=== PATIENT | male | born 1965 | race Caucasian/White ===

== ENCOUNTER 2019-03-02 02:04 | Emergency (ER) | payer OTHER, SELFPAY ==
[2019-03-02] MEDS ORDERED: NA CHLORIDE 0.9% 1,000 ML ONE (02:37)
[2019-03-02] MEDS ORDERED: OXYMETAZOLINE HCL 0.05% 15ML NAS ONE (02:37)
[2019-03-02 02:50] LABS: Absolute Lymphocytes (CBC) 2.4 K/uL (0.7-4.9); Absolute Monocytes 0.5 K/uL (0.1-1.3); Absolute Neutrophil 3.3 K/uL (1.8-8.0); Basophils % 0.2 % (0-1.3); Eosinophils % 3.5 % (0-4.4); Hematocrit 42.4 % (39.6-49.0); Lymphocytes % 37.2 % (15.3-44.8); MPV 8.1 fL (7.6-11.3); Monocytes % 7.7 % (3.3-12.3); RBC Red Blood Cell Count 5.28 M/uL (4.33-5.43)
[2019-03-02] MEDS ORDERED: CLONIDINE 0.2 MG/PATCH TD ONE (02:56)
[2019-03-02 03:05] LABS: Protime INR 1.01
[2019-03-02 03:13] LABS: Creatine Phosphokinase 41 U/L (39-308); Troponin (Emerg Dept Use Only) < 0.02 ng/mL (0.0-0.045)
[2019-03-02 03:44] LABS: Albumin 3.1 g/dL (3.4-5.0); Bilirubin Direct 0.2 mg/dL (0-0.2); Bilirubin Total 0.4 mg/dL (0.2-1.0); Potassium 3.6 mmol/L (3.5-5.1); Thyroid Stimulating Hormone 0.925 uIU/mL (0.360-3.740)
--- NOTE | 2019-03-02 03:44 | ER ---
Nurse's Notes [facility] Name: Celso Al Age: 53 yrs Sex: Male : 1965 Arrival Date: 03/02/2019 Time: 02:04 Bed 17 Private MD: Diagnosis: Epistaxis;Essential (primary) hypertension;Dysphagia;Chest pain, unspecified Presentation: 03/02 02:00 Presenting complaint: EMS states: Pt has had chest pain that started earlier today, and jb4 a nose bleed that started approximately 15 minutes prior to arrival to the ED EKG reading sinus rhythm at a rate of 90, 100% on room air, 170/100. Reports dropping 50 pounds within the past couple weeks due to not being able to eat because of the hiatal hernia. 02:00 Transition of care: patient was not received from another setting of care. Onset of jb4 symptoms was March 02, 2019. Risk Assessment: Do you want to hurt yourself or someone else? Patient reports no desire to harm self or others. Initial Sepsis Screen: Does the patient meet any 2 criteria? HR > 90 bpm. Yes Does the patient have a suspected source of infection? No. Patient's initial sepsis screen is negative. Care prior to arrival: IV initiated. 20 GA, in the left antecubital area. 02:00 Method Of Arrival: EMS: [facility] jb4 02:00 Acuity: CHONG 3 jb4 Triage Assessment: 02:20 General: Appears in no apparent distress. uncomfortable, Behavior is calm, cooperative, cc3 appropriate for age. Pain: Complains of pain in epigastric area. EENT: Nares with bleeding noted on left. Neuro: Level of Consciousness is awake, alert, obeys commands, Oriented to person, place, time, situation, Appropriate for age. Cardiovascular: Patient's skin is warm and dry. Respiratory: Airway is patent Respiratory effort is even, unlabored, Respiratory pattern is regular, symmetrical. GI: Abdomen is flat. : No signs and/or symptoms were reported regarding the genitourinary system. Derm: No signs and/or symptoms reported regarding the dermatologic system. Musculoskeletal: Circulation, motion, and sensation intact. Range of motion: intact in all extremities. Historical: - Allergies: 02:00 No Known Allergies; jb4 - Home Meds: 02:00 None [Active]; jb4 - PMHx: 02:00 Hypertension; hiatal hernia; jb4 - PSHx: 02:00 None; jb4 - Immunization history:: Adult Immunizations up to date. - Social history:: Smoking status: Patient uses tobacco products, 8 cigarettes per day, Patient/guardian denies using alcohol. - Ebola Screening: : No symptoms or risks identified at this time. Screenin:20 Abuse screen: Denies threats or abuse. Denies injuries from another. Nutritional cc3 screening: No deficits noted. Tuberculosis screening: No symptoms or risk factors identified. Fall Risk Ambulatory Aid- None/Bed Rest/Nurse Assist (0 pts). Gait- Normal/Bed Rest/Wheelchair (0 pts) Mental Status- Oriented to own ability (0 pts). Assessment: 02:20 General: see triage assessment. cc3 03:44 Reassessment: Patient appears in no apparent distress at this time. Patient and/or cc3 family updated on plan of care and expected duration. Pain level reassessed. Patient is alert, oriented x 3, equal unlabored respirations, skin warm/dry/pink. DATA ENTRY ANALYST Ruth removed the nasal packing that she put on the patient's left nostril as the bleeding now stopped and ordered patient for discharge home. 04:00 Reassessment: Patient appears in no apparent distress at this time. Patient and/or cc3 family updated on plan of care and expected duration. Pain level reassessed. Patient is alert, oriented x 3, equal unlabored respirations, skin warm/dry/pink. Patient started bleeding again to his bilateral nostrils, Dr. Vang informed and to hold discharge order. 04:22 Reassessment: Dr. Vang ordered patient for transfer to [facility], patient and cc3 informed. 04:50 Reassessment: Patient appears in no apparent distress at this time. Patient and/or cc3 family updated on plan of care and expected duration. Pain level reassessed. Patient is alert, oriented x 3, equal unlabored respirations, skin warm/dry/pink. Report called and handed over to [facility] ANGELO Ward. Transfer form completed and signed by the patient himself. EMS contacted by MARLENE Song. 05:20 Reassessment: Patient appears in no apparent distress at this time. Patient and/or cc3 family updated on plan of care and expected duration. Pain level reassessed. Patient is alert, oriented x 3, equal unlabored respirations, skin warm/dry/pink. Patient was not able to give urine sample. [facility] came for patient transport, nasal bleeding is controlled. Patient left ER vitally stable by EMS stretcher with his . Vital Signs: 02:00 BP 169 / 104; Pulse 92; Resp 16; Temp 97.7(O); Pulse Ox 98% on R/A; Weight 55.34 kg jb4 (R); Height 5 ft. 8 in. (172.72 cm) (R); Pain 10/10; 02:26 BP 169 / 103; Pulse 87; Resp 19 S; Pulse Ox 99% on R/A; cc3 03:00 BP 159 / 105; Pulse 85; Resp 19 S; Pulse Ox 100% on R/A; cc3 04:00 BP 174 / 117; Pulse 87; Resp 20 S; Pulse Ox 98% on R/A; cc3 05:00 BP 150 / 106; Pulse 81; Resp 18 S; Pulse Ox 99% on R/A; cc3 05:17 BP 160 / 113; Pulse 93; Resp 14 S; Pulse Ox 99% on R/A; cc3 02:00 Body Mass Index 18.55 (55.34 kg, 172.72 cm) jb4 ED Course: 02:00 Arm band placed on left wrist. EKG completed in triage. Results shown to MD. jb4 02:04 Patient arrived in ED. ds1 02:05 [facility] snw 02:05 Trent Vang MD is Attending Physician. snw 02:16 Triage completed. jb4 02:20 Marline Reed is Primary Nurse. cc3 02:20 Patient has correct armband on for positive identification. Placed in gown. Bed in low cc3 position. Call light in reach. Side rails up X2. desk monitor on. Pulse ox on. NIBP on. 02:20 Maintain EMS IV. Dressing intact. Good blood return noted. Site clean \T\ dry. Gauge \T\ cc 3 site: gauge 20 at the left ACV. IV is patent, is intact, with good blood return. 03:10 X-ray completed. Portable x-ray completed in exam room. Patient tolerated procedure kw well. 03:11 Chest Single View XRAY In Process Unspecified. EDMS 05:20 No provider procedures requiring assistance completed. Patient transferred, IV remains cc3 in place. Administered Medications: 02:30 Drug: NS 0.9% 1000 ml Route: IV; Rate: 1 bolus; Site: left antecubital; cc3 03:30 Follow up: Response: No adverse reaction; IV Status: Completed infusion; IV Intake: cc3 1000ml 02:35 Drug: Afrin Drops (0.05 %) 1 sprays {Note: administered by JUAN Miranda.} Route: cc3 Intranasal; Site: left nare; 03:20 Follow up: Response: No adverse reaction; Marked relief of symptoms cc3 03:00 Drug: cloNIDine 0.2 mg/24 hr 1 patches Route: Transdermal; Site: anterior chest wall; cc3 03:30 Follow up: Response: No adverse reaction cc3 03:40 Drug: ProTONIX 40 mg Route: PO; cc3 04:00 Follow up: Response: No adverse reaction cc3 04:45 Drug: Trandate 20 mg Route: IVP; Site: left antecubital; cc3 05:00 Follow up: Response: No adverse reaction; Blood pressure is lowered cc3 Intake: 03:30 IV: 1000ml; Total: 1000ml. cc3 Outcome: 03:44 Discharge ordered by . xi 04:22 ER care complete, transfer ordered by . orion 05:20 Transferred Transfer form completed. Note: [facility] cc3 05:20 Condition: stable 05:20 Instructed on the need for transfer, Demonstrated understanding of instructions. 05:26 Patient left the ED. cc3 Signatures: Dispatcher [employer] EDMS Trent Vang MD MD cha Therrien, Shelly, DISEASE AND INSECT CONTROL BOSS-C DISEASE AND INSECT CONTROL BOSS-Csnw Arabella Corado ds1 Amy Marcelo James, ANGELO RN jb4 Marline Reed cc3 Corrections: (The following items were deleted from the chart) 05:37 02:20 Maintain EMS IV. Dressing intact. Good blood return noted. Site clean \T\ dry. cc3 Gauge \T\ site: gauge 20 at the right ACV. IV is patent, is intact, with good blood return, cc3 05:43 04:50 Reassessment: Patient appears in no apparent distress at this time. Patient cc3 and/or family updated on plan of care and expected duration. Pain level reassessed. Patient is alert, oriented x 3, equal unlabored respirations, skin warm/dry/pink. Report called and handed over to [facility] Lesia Ward. Transfer form completed and signed by the patient himself. cc3
--- NOTE | 2019-03-02 03:44 | EDPHYS ---
Physician Documentation [facility] Name: Celso Al Age: 53 yrs Sex: Male : 1965 Arrival Date: 03/02/2019 Time: 02:04 Bed 17 Private MD: ED Physician Trent Vang HPI: 03/02 02:40 This 53 yrs old Male presents to ER via EMS with complaints of Nose Bleed, snw Chest Pain. 02:40 The patient or guardian reports chest pain that is located primarily in the anterior snw chest wall, bilaterally. Onset: 2 day(s) ago, epistaxis began suddenly just prior to arrival. The pain does not radiate. Associated signs and symptoms: Pertinent positives: abdominal pain, nausea. The chest pain is described as sharp. Duration: The patient or guardian reports a single episode. Severity of pain: At its worst the pain was moderate. EMS care prior to arrival includes: saline lock. The patient has experienced similar episodes in the past, pt states he has been to [facility] 3 times this month. as noted above. hx of 40-50 pound wt loss in recent months. Pt states he has had CT scans at [facility] recently. Historical: - Allergies: 02:00 No Known Allergies; jb4 - Home Meds: 02:00 None [Active]; jb4 - PMHx: 02:00 Hypertension; hiatal hernia; jb4 - PSHx: 02:00 None; jb4 - Immunization history:: Adult Immunizations up to date. - Social history:: Smoking status: Patient uses tobacco products, 8 cigarettes per day, Patient/guardian denies using alcohol. - Ebola Screening: : No symptoms or risks identified at this time. ROS: 02:39 Constitutional: Negative for fever, chills, and weight loss, Eyes: Negative for injury, snw pain, redness, and discharge, Neck: Negative for injury, pain, and swelling, Respiratory: Negative for shortness of breath, cough, wheezing, and pleuritic chest pain, Back: Negative for injury and pain, : Negative for injury, bleeding, discharge, and swelling, MS/Extremity: Negative for injury and deformity, Skin: Negative for injury, rash, and discoloration, Neuro: Negative for headache, weakness, numbness, tingling, and seizure. 02:39 ENT: Positive for nose bleed. 02:39 Cardiovascular: Positive for chest pain, of the xyphoid area. 02:39 Abdomen/GI: Positive for abdominal pain, of the epigastric area. Exam: 02:37 Head/Face: Normocephalic, atraumatic. snw 02:37 Neck: Trachea midline, no thyromegaly or masses palpated, and no cervical lymphadenopathy. Supple, full range of motion without nuchal rigidity, or vertebral point tenderness. No Meningismus. Chest/axilla: Normal chest wall appearance and motion. Nontender with no deformity. No lesions are appreciated. 02:37 Respiratory: Lungs have equal breath sounds bilaterally, clear to auscultation and percussion. No rales, rhonchi or wheezes noted. No increased work of breathing, no retractions or nasal flaring. Abdomen/GI: Soft, non-tender, with normal bowel sounds. No distension or tympany. No guarding or rebound. No evidence of tenderness throughout. Back: No spinal tenderness. No costovertebral tenderness. Full range of motion. MS/ Extremity: Pulses equal, no cyanosis. Neurovascular intact. Full, normal range of motion. Neuro: Awake and alert, GCS 15, oriented to person, place, time, and situation. Cranial nerves II-XII grossly intact. Motor strength 5/5 in all extremities. Sensory grossly intact. Cerebellar exam normal. Normal gait. Psych: Awake, alert, with orientation to person, place and time. Behavior, mood, and affect are within normal limits. 02:37 Constitutional: The patient appears alert, awake, frail, uncomfortable, unkempt. 02:37 Eyes: Pupils: no acute changes, Conjunctiva: normal, Sclera: icterus, mild. 02:37 ENT: TM's: are normal, Nose: bleeding, is seen from the left nare, and is moderate, no septal hematoma is appreciated, Mouth: is normal, Posterior pharynx: is normal. 02:37 Cardiovascular: Rate: tachycardic. 02:37 Skin: bronzed. 03:09 ECG was reviewed by the Attending Physician. snw Vital Signs: 02:00 BP 169 / 104; Pulse 92; Resp 16; Temp 97.7(O); Pulse Ox 98% on R/A; Weight 55.34 kg jb4 (R); Height 5 ft. 8 in. (172.72 cm) (R); Pain 10/10; 02:26 BP 169 / 103; Pulse 87; Resp 19 S; Pulse Ox 99% on R/A; cc3 03:00 BP 159 / 105; Pulse 85; Resp 19 S; Pulse Ox 100% on R/A; cc3 04:00 BP 174 / 117; Pulse 87; Resp 20 S; Pulse Ox 98% on R/A; cc3 05:00 BP 150 / 106; Pulse 81; Resp 18 S; Pulse Ox 99% on R/A; cc3 05:17 BP 160 / 113; Pulse 93; Resp 14 S; Pulse Ox 99% on R/A; cc3 02:00 Body Mass Index 18.55 (55.34 kg, 172.72 cm) jb4 MDM: 02:10 Patient medically screened. snw 03:45 ECG:. Data reviewed: vital signs, nurses notes, lab test result(s), EKG, radiologic snw studies. Data interpreted: Pulse oximetry: on room air is 98 %. Interpretation: normal. Counseling: I had a detailed discussion with the patient and/or guardian regarding: the historical points, exam findings, and any diagnostic results supporting the discharge/admit diagnosis, lab results, radiology results, the need for outpatient follow up, to return to the emergency department if symptoms worsen or persist or if there are any questions or concerns that arise at home, smoking cessation. Response to treatment: the patient's symptoms have mildly improved after treatment. Special discussion: Based on the patient's Hx, exam, and Dx evaluation, there is no indication for emergent surgery or inpatient Tx. It is understood by the patient/guardian that if the Sx's persist or worsen they need to return immediately for re-evaluation. I have referred the patient to see his PCP for further evaluation of high blood pressure. Based on the history and exam findings, there is no indication for further emergent testing or inpatient evaluation. I discussed with the patient/guardian the need to see the contracting officer for further evaluation of the symptoms. I discussed with the patient/guardian the need to see the general surgeon for further evaluation of the symptoms. I discussed with the patient/guardian the need to see the primary care provider for further evaluation of the symptoms. 03/02 02:18 Order name: TSH; Complete Time: 03:47 snw 03/02 02:18 Order name: LFT's; Complete Time: 03:47 snw 03/02 02:18 Order name: CBC with Diff; Complete Time: 03:22 snw 03/02 02:18 Order name: Chem 7; Complete Time: 03:47 snw 03/02 02:18 Order name: PT-INR; Complete Time: 03:18 snw 03/02 02:14 Order name: Chest Single View XRAY w 03/02 02:18 Order name: Ptt, Activated; Complete Time: 03:18 snw 03/02 02:20 Order name: Troponin (emerg Dept Use Only); Complete Time: 03:18 snw 03/02 02:20 Order name: CPK; Complete Time: 03:18 snw 03/02 02:14 Order name: Misc. Order: ice pack to bridge of nose; Complete Time: 02:21 snw 03/02 03:05 Order name: EKG; Complete Time: 03:06 w 03/02 03:05 Order name: EKG - Nurse/Tech; Complete Time: 03:07 snw EC:45 Rhythm is regular. QRS [place] is Normal. HI interval is normal. QRS interval is normal. snw QT interval is normal. No Q waves. T waves are Normal. No ST changes noted. Clinical impression: Normal ECG. Administered Medications: 02:30 Drug: NS 0.9% 1000 ml Route: IV; Rate: 1 bolus; Site: left antecubital; cc3 03:30 Follow up: Response: No adverse reaction; IV Status: Completed infusion; IV Intake: cc3 1000ml 02:35 Drug: Afrin Drops (0.05 %) 1 sprays {Note: administered by JUAN Miranda.} Route: cc3 Intranasal; Site: left nare; 03:20 Follow up: Response: No adverse reaction; Marked relief of symptoms cc3 03:00 Drug: cloNIDine 0.2 mg/24 hr 1 patches Route: Transdermal; Site: anterior chest wall; cc3 03:30 Follow up: Response: No adverse reaction cc3 03:40 Drug: ProTONIX 40 mg Route: PO; cc3 04:00 Follow up: Response: No adverse reaction cc3 04:45 Drug: Trandate 20 mg Route: IVP; Site: left antecubital; cc3 05:00 Follow up: Response: No adverse reaction; Blood pressure is lowered cc3 Disposition: 04:18 Co-signature as Attending Physician, Trent Vang MD I agree with the assessment and [facility] plan of care. Disposition: 03/02/19 04:22 Transfer ordered to [facility]. Diagnosis are Epistaxis, Essential (primary) hypertension, Dysphagia, Chest pain, unspecified. - Reason for transfer: Higher level of care. - Accepting physician is to [facility]. - Condition is Fair. - Problem is new. - Symptoms have improved. Signatures: Dispatcher [employer] EDMN Trent Vang MD MD cha Therrien, Shelly, BUSINESS SYSTEMS ARCHITECT-C BUSINESS SYSTEMS ARCHITECT-Csnw Carlos Forte RN RN jb4 Marline Reed cc3 Corrections: (The following items were deleted from the chart) 04:21 03:44 03/02/2019 03:44 Discharged to Home. Impression: Epistaxis; Epigastric pain; orion Essential (primary) hypertension. Condition is Stable. Forms are Medication Reconciliation Form, Thank You Letter, Antibiotic Education, Prescription Opioid Use. Follow up: Private Physician; When: 1 - 2 days; Reason: Recheck today's complaints, Continuance of care, Re-evaluation by your physician. Follow up: Emergency Department; When: As needed; Reason: Worsening of condition. [facility] 04:31 04:22 03/02/2019 04:22 Transfer ordered to [facility]. Diagnosis is Epistaxis; orion Essential (primary) hypertension; Dysphagia; Chest pain, unspecified. Reason for transfer: Higher level of care. Accepting physician is to [facility]. Condition is Fair. Problem is new. Symptoms have improved. orion 05:26 04:31 03/02/2019 04:22 Transfer ordered to [facility]. Diagnosis is Epistaxis; cc3 Essential (primary) hypertension; Dysphagia; Chest pain, unspecified. Reason for transfer: Higher level of care. Accepting physician is to [facility]. Condition is Fair. Problem is new. Symptoms have improved. orion
[2019-03-02] MEDS ORDERED: PANTOPRAZOLE 40MG TABLET PO ONE (03:52)
[2019-03-02] MEDS ORDERED: LABETALOL 20 MG/4ML SYRINGE IV ONE (05:00)
[2019-03-02 05:35] VITALS: O2SAT 99
[2019-03-02 05:36] VITALS: BP 160/113
--- NOTE | 2019-03-02 08:17 | EKG ---
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
--- NOTE | 2019-03-02 08:22 | RAD REPORT ---
EXAM DESCRIPTION: RAD - Chest Single View - 03/02/2019 3:13 am CLINICAL HISTORY: epistaxis;Chest pain Chest pain. COMPARISON: CHEST PA AND LAT 2 VIEW dated 12/27/2011 FINDINGS: Portable technique limits examination quality. The lungs are grossly clear. The heart is normal in size. No displaced fractures. IMPRESSION: No acute intrathoracic process suspected.
== END 2019-03-02 05:26 | disposition short-term general hospital (02) ==
LOC: ER 02:04
DX: R04.0 Epistaxis (principal); I10 Essential (primary) hypertension; R07.9 Chest pain, unspecified; R13.10 Dysphagia, unspecified; Z72.0 Tobacco use
CPT/HCPCS: 36415; 71045; 80048; 80076; 82550; 84443; 84484; 85025; 85610; 85730; 93005; 96361; 96374; 99285; J7030